=== PATIENT | male | born 1985 | race Two or more races ===

== ENCOUNTER → 2017-05-02 | Outpatient (CLI) | payer BC | LOC: BRMIMAGING 13:01 | PROVIDERS: ATTEND Internal Medicine Rheumatology | DX: M25.862 Other specified joint disorders, left knee (principal); M25.462 Effusion, left knee | CPT/HCPCS: 73562-PO ==

== ENCOUNTER → 2017-08-28 | Outpatient (CLI) | payer BC, OTHER | LOC: BRMIMAGING 10:31 | PROVIDERS: ATTEND Internal Medicine Rheumatology | DX: M46.1 Sacroiliitis, not elsewhere classified (principal); M54.5 Low back pain | CPT/HCPCS: 72100-PO; 72200-PO ==